=== PATIENT | male | born 1950 | race Caucasian/White ===

== ENCOUNTER → 2017-02-13 | Outpatient (CLI) | payer BC ==
--- NOTE | 2017-02-13 14:43 | PCVCIMAG ---
EXAM: BILATERAL LOWER EXTREMITY ARTERIAL DUPLEX INDICATION: Peripheral Arterial Disease. Leg pain. FINDINGS: Right Leg: Satisfactory arterial waveforms throughout the common/profunda/superficial femoral, popliteal, anterior tibial, peroneal, and posterior tibial arteries. No flow limiting stenosis seen. Left Leg: Satisfactory arterial waveforms throughout the common/profunda/superficial femoral, popliteal, anterior tibial, peroneal, and posterior tibial arteries. No flow limiting stenosis seen. IMPRESSION: No flow limiting stenosis in the right lower extremity. No flow limiting stenosis in the left lower extremity. LOC:[id number]
--- NOTE | 2017-02-14 16:36 | PCVCIMAG ---
APPROVED REPORT Study performed: 02/13/2017 14:21:28 EXAM: Comprehensive 2D, Doppler, and color-flow Echocardiogram Patient Location: Echo lab Room #: 2Status: routine BSA: 2.31 HR: 72 bpmBP: 170/94 mmHg Rhythm: RBBB Other Information Study Quality: Good Risk Factors: Cardiac Risk Factors: palpitations, Hyperlipidemia, HTN, DM Indications Abnormal ECG Arrhythmia Dyspnea Palpitations Peripheral Edema 2D Dimensions LVEF(%): 69.60 (>50%) IVSd: 11.20 (7-11mm)LVOT Diam: 23.41 (18-24mm) LVDd: 49.92 mm PWd: 10.01 (7-11mm)Ascending Ao: 33.47 (22-36mm) LVDs: 30.25 (25-40mm) Left Atrium: 43.69 (27-40mm) Aortic Root: 33.46 mm LV Single Plane 4CH: 53.23 % LV Single Plane 2CH: 71.72 %Mckeon's LVEF: 62.47 % Biplane EF: 63.0 % Volumes Left Atrial Volume (Systole) Single Plane 4CH: 38.48 mLSingle Plane 2CH: 47.43 mL Biplane LA Volume: 44.00 mLLA ESV Index: 19.00 mL/m2 Aortic Valve AoV Peak Alberto.: 1.36 m/s AO Peak Gr.: 7.37 mmHgLVOT Max P.43 mmHg LVOT Max V: 0.93 m/s NATALIA Vmax: 2.94 cm2 Mitral Valve E/A Ratio: 0.9 MV Decel. Time: 227.28 ms MV E Max Alberto.: 0.48 m/s MV A Alberto.: 0.56 m/s TDI E/Lateral E': 8.00E/Medial E': 6.86 Medial E' Alberto.: 0.07 m/s Lateral E' Alberto.: 0.06 m/s Pulmonary Valve PV Peak Alberto.: 0.84 m/sPV Peak Gr.: 2.85 mmHg Pulmonary Vein P Vein S: 0.54 m/sP Vein A: 0.58 m/s P Vein D: 0.43 m/sP Vein A Dur.: 86.5 msec P Vein S/D Ratio: 1.26 Tricuspid Valve TR Peak Alberto.: 2.66 m/s TR Peak Gr.: 28.35 mmHg TV Vmax: 0.53 m/sPA Pressure: 35.00 mmHg Left Ventricle The left ventricle is normal size. There is normal LV segmental wall motion. Borderline concentric left ventricular hypertrophy. Left ventricular systolic function is normal. The left ventricular ejection fraction is within the normal range. LVEF is 60-65%. The left ventricular diastolic function is normal. Right Ventricle The right ventricle is normal size. The right ventricular systolic function is normal. Atria The left atrium size is normal. The right atrium size is normal. Aortic Valve The aortic valve is normal in structure. No aortic regurgitation is present. There is no aortic valvular stenosis. Mitral Valve The mitral valve is normal in structure. There is no mitral valve regurgitation noted. No evidence of mitral valve stenosis. Tricuspid Valve The tricuspid valve is normal in structure. Trace to mild tricuspid regurgitation with a PA pressure of 35mmHg.. Pulmonic Valve The pulmonary valve is normal in structure. There is no pulmonic valvular regurgitation. Great Vessels The aortic root is normal in size. The ascending aorta is normal in size. IVC is normal in size and collapses with >50% inspiration Pericardium There is no pericardial effusion. There is no pleural effusion. <Conclusion> The left ventricle is normal size. LVEF is 60-65%. The aortic valve is normal in structure. The mitral valve is normal in structure. The tricuspid valve is normal in structure. Trace to mild tricuspid regurgitation with a PA pressure of 35mmHg.. The pulmonary valve is normal in structure. There is no pericardial effusion.
== END | disposition home or self-care (01) ==
LOC: PCVCIMAG 13:31
PROVIDERS: ATTEND Nuclear Medicine Nuclear Cardiology
DX: I73.9 Peripheral vascular disease, unspecified (principal); R06.09 Other forms of dyspnea; I45.10 Unspecified right bundle-branch block; I10 Essential (primary) hypertension; E78.5 Hyperlipidemia, unspecified; E11.9 Type 2 diabetes mellitus without complications; R94.31 Abnormal electrocardiogram [ECG] [EKG]; I49.8 Other specified cardiac arrhythmias; R60.0 Localized edema; I07.1 Rheumatic tricuspid insufficiency; L03.119 Cellulitis of unspecified part of limb; Z87.891 Personal history of nicotine dependence
CPT/HCPCS: 93306; 93925

== ENCOUNTER → 2017-10-09 | Outpatient (CLI) | payer BC ==
[~2017-10-09] MED LIST: REGADENOSON 0.4 MG/5 ML DISP.SYRIN. IV
== END | disposition home or self-care (01) ==
LOC: PCVCIMAG 07:50
DX: I25.10 Atherosclerotic heart disease of native coronary artery without angina pectoris (principal); R07.9 Chest pain, unspecified; R06.00 Dyspnea, unspecified; E83.59 Other disorders of calcium metabolism; E66.9 Obesity, unspecified; Z87.891 Personal history of nicotine dependence
CPT/HCPCS: 78452; 93017; A9500; J2785